=== PATIENT | female | born 1985 | race Caucasian/White ===

== ENCOUNTER 2017-11-17 06:57 | Inpatient (IN) | payer MEDICAID ==
[2015-08-23 16:01] VITALS: BMI 31.1
[2017-11-17] MEDS ORDERED: Penicillin G 5 Million Unit Vial IVPB ONE (07:05)
[2017-11-17] MEDS ORDERED: Lactated Ringer's 1,000 ML IV SCH (07:15)
[2017-11-17] MEDS ORDERED: Oxytocin 30 UNIT 30 UNITS/500 ML BAG IV SCH (08:00)
[2017-11-17 08:19] LABS: BASO % 0.1 % (0.0-2.0); EOS % 0.2 % (0.0-4.0); HEMOGLOBIN 12.6 g/dL (11.0-16.0); LYMPH # 2.6 K/uL (1.0-4.3); LYMPH % 24.2 % (20.0-40.0); MEAN CELL VOLUME 96.3 fL (81.0-99.0); MEAN CORPUSCULAR HEMOGLOBIN 33.7 pg (27.0-31.0); MEAN CORPUSCULAR HGB CONC 34.9 g/dL (33.0-37.0); MEAN PLATELET VOLUME 9.6 fL (7.2-11.7); MONO # 0.5 K/uL (0.0-0.8); MONO % 4.8 % (0.0-10.0); NEUT # 7.6 K/uL (1.8-7.0); NEUT % 70.7 % (50.0-75.0); NRBC % 0.1 % (0.0-2.0); RBC 3.75 Mil/uL (3.80-5.20); RED CELL DISTRIBUTION WIDTH 13.7 % (11.5-14.5); WHITE BLOOD COUNT 10.7 K/uL (4.8-10.8)
[2017-11-17 08:31] LABS: GFR AFRICAN-AMERICAN > 60; GFR NON-AFRICAN AMERICAN > 60
[2017-11-17 08:32] LABS: ALBUMIN 3.7 g/dL (3.5-5.0); ALT/SGPT 36 U/L (9-52); AST/SGOT 47 U/L (14-36); BLOOD UREA NITROGEN 8 mg/dL (7-17)
[2017-11-17 08:34] LABS: SQUAMOUS EPITHIAL 8 /hpf (0-5); URINE BACTERIA RARE (<OCC); URINE BILIRUBIN NEGATIVE (NEGATIVE); URINE BLOOD 1+ (NEGATIVE); URINE CLARITY Hazy (Clear); URINE COLOR Yellow (YELLOW); URINE GLUCOSE (UA) NORMAL (Normal); URINE LEUKOCYTE ESTERASE TRACE Leu/uL (Negative); URINE NITRATE NEGATIVE (NEGATIVE); URINE PROTEIN NEGATIVE (NEGATIVE); URINE UROBILINOGEN NORMAL mg/dL (0.2-1.0)
--- NOTE | 2017-11-17 09:05 | OBPN ---
Datetime: 11/17/2017 07:16 IP Progress Impression Other: SROM IP Progress Impression: Normal progression of labor IP Informed Consent Obtain: Vaginal Delivery IP Progress Plan: Continue present management Membranes, Provider: Intact Contraction Comments Provider: q8min IP Progress Note Comment: NORMAL PROGRESS OF LABOR, ANTICIPATE NORMAL VAGINAL DELIVERY. Vital Signs Provider: Reviewed; Within Normal Limits NICHD Accel Fetus A IP Provider: 15X15 Dilatation, Provider: 9 Effacement, Provider: 100 Station, Provider: 0 NICHD Decel Fetus A IP Provider: None
[2017-11-17] MEDS: Multiple Vitamins Tab PO SCH (10:05)
[2017-11-17] MEDS ORDERED: Benzocaine/Menthol 20%-0.5% Topical Spray (60 ml) TOP SCH (12:00)
[2017-11-18 07:32] LABS: BASO % 0.2 % (0.0-2.0); EOS # 0.1 K/uL (0.0-0.7); EOS % 0.6 % (0.0-4.0); HEMOGLOBIN 11.8 g/dL (11.0-16.0); LYMPH # 3.6 K/uL (1.0-4.3); LYMPH % 32.8 % (20.0-40.0); MEAN CELL VOLUME 96.9 fL (81.0-99.0); MEAN CORPUSCULAR HEMOGLOBIN 33.7 pg (27.0-31.0); MEAN CORPUSCULAR HGB CONC 34.8 g/dL (33.0-37.0); MEAN PLATELET VOLUME 9.7 fL (7.2-11.7); MONO # 0.7 K/uL (0.0-0.8); MONO % 6.1 % (0.0-10.0); NEUT # 6.7 K/uL (1.8-7.0); NEUT % 60.3 % (50.0-75.0); RBC 3.49 Mil/uL (3.80-5.20); RED CELL DISTRIBUTION WIDTH 13.3 % (11.5-14.5)
[2017-11-18 09:33] VITALS: RESP 18
--- NOTE | 2017-11-18 09:57 | OBADHP ---
Datetime: 11/17/2017 07:16 Admit Comment, IP Provider: Patient is a 32 year old at 40w4d with SELVIN 11/13/17 presents to L +D for contractions that started at 11:45pm last night. Pain is intermitted. Offers no other complain ts at this time. Endorses +FM, denies LOF, VB. Issues: GBS positive OB Hx: 1. 2012 at term, 8 lbs, female , no complications 2. 2014 at term, 7lbs, female infant, no complications 3. 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 Hx: LMP - 02/06/17 [facility] - 13 x monthly x 6-7 days Denies fibroids, ovarian cysts Allergies: NKDA Medical Hx: Denies Medications: PNV Surgical Hx: Denies Social Hx: Deneis alcohol, tobacco, drug use Family Hx: Denies PE: see above A/P: 32 year old at 40w4d presents in active labor -Stable, afebrile -CEFM and TOCO -Admission labs: CBC, CMP, TS, UA, RPR, HIV -GBS positive: Pen G -Diet: NPO -Anticipate vaginal delivery -Plan discussed with Dr Pedro Pablo Hoffman DO PGY-1 Pelvic Type - PN: Adequate Extremities - PN: Normal Abdomen - PN: Normal Back - PN: Normal Breast - PN: Normal Lungs - PN: Normal Heart - PN: Normal Thyroid - PN: Normal Neurologic - PN: Normal HEENT - PN: Normal General - PN: Normal Membranes, Provider: Intact Contraction Comments Provider: q8min Comments, ACOG Physical Exam: VSS Gen: AAOx3 Abd: Soft, gravid Ext: No clubbing, cyanosis, edema SVE: 100/0 IP Hx Assessment: The History has been Reviewed and is Current Vital Signs Provider: Reviewed; Within Normal Limits IP Chief Complaint: Uterine contractions NICHD Accel Fetus A IP Provider: 15X15 NICHD Decel Fetus A IP Provider: None Dilatation, Provider: 9 Effacement, Provider: 100 Station, Provider: 0 Genitourinary Exam: Normal DTRs - PN: Normal EGA AdmitDate IP: 40.4 IP Adm Impression: Term, intrauterine IP Admit Plan: Admit to unit
[2017-11-18] MEDS: Multiple Vitamins Tab PO SCH (10:15)
--- NOTE | 2017-11-18 20:34 | OBPPN ---
Datetime: 11/18/2017 20:20 PP Pain Prov: Within normal limits PP Nausea Prov: Denies PP Flatus Prov: Yes PP Breasts Prov: Normal PP Heart Prov: Normal PP Lungs Prov: Normal PP Abdomen/Uterus Prov: Normal PP Lochia Prov: Normal PP Vulva/Perineum Prov: Normal PP CVA Tenderness Prov: Normal PP Extremities Prov: Normal PP Plan Prov: Continue present management PP Progress Note Prov: 1st day: afebrile, ambulatory, breasts are soft lactating her baby, uterus firm and char d, lochia minimal, extremities, no edema, no tenderness. for discharged home in am.. continue prenata l vitamins. to the office for checkup in 4 weeks. IP PP Procedures: None Vital Signs Provider PP: Reviewed; Within Normal Limits
[2017-11-19] MEDS: Multiple Vitamins Tab PO SCH (09:51)
[2017-11-19] MEDS ORDERED: Influenza Vaccine 60 mcg/0.5 mL SYR (4YR UP) IM ONE (14:00)
--- NOTE | 2017-11-19 15:28 | OBDS ---
DELIVERY PERSONNEL Delivery Doctor: Stefano Morales MD Retail Customer Service Specialist: Madison Perez RN MATERNAL INFORMATION Delivery Anesthesia: None Estimated Blood Loss (ml): 150 Placenta Cultured: No Maternal Complications: None Provider Comments: normal spontaneous vaginal delivery to a live baby boy with score of 9/9 fr om a nehemiah position with intact perineum, PLACENTA EXPELLED SPONTANEOUSLY COMPLETE. UTERUS FIRM AND GARFIELD D. EBL 150 CC. LABOR SUMMARY EDC: 11/13/2017 00:00 No. Babies in Womb: 1 Attempted: No Labor Anesthesia: None LABOR INFORMATION Reason for Induction: Not Applicable Onset of Labor: 11/16/2017 23:45 Complete Dilatation: 11/17/2017 08:16 Oxytocin: Augmentation Group B Beta Strep: Positive Antibiotics # of Doses: 1 Antibiotics Time of Last Dose: 717 Steroids Given: None Reason Steroids Not Administered: Not Applicable MEMBRANES Membranes Rupture Method: Spontaneous Rupture of Membranes: 11/17/2017 08:16 Length of Rupture (hrs): 0.35 Amniotic Fluid Color: Clear Amniotic Fluid Amount: Small Amniotic Fluid Odor: Normal STAGES OF LABOR Stage 1 hrs: 8 Stage 1 min: 31 Stage 2 hrs: 0 Stage 2 min: 21 Stage 3 hrs: 0 Stage 3 min: 3 Total Time in Labor hrs: 8 Total Time in Labor min: 55 VAGINAL DELIVERY Episiotomy: None Laceration Extension: N/A Laceration Type: None Laceration Repair: Not Applicable Initial Vag Sponge Count: 10 Final Vag Sponge Count: 10 Initial Vag Sharps Count: 0 Final Vag Sharps Count: 0 Sponge Count Correct: Yes Sharps Count Correct: N/A BABY A INFORMATION Infant Delivery Date/Time: 11/17/2017 08:37 Method of Delivery: Vaginal Born in Route : No : N/A Forceps: N/A Vacuum Extraction: N/A Shoulder Dystocia : No SHOULDER DYSTOCIA BABY A Infant Delivery Date/Time: 11/17/2017 08:37 PRESENTATION/POSITION BABY A Presentation: Cephalic Cephalic Presentation: Vertex Vertex Position: Left Occipital Anterior Breech Presentation: N/A PLACENTA INFORMATION BABY A Placenta Delivery Time : 11/17/2017 08:40 SCORES BABY A Heart Rate 1 min: >100 bpm Resp Effort 1 min: Good Cry Reflex Irritability 1 min: Cough or Sneeze or Pulls Away Muscle Tone 1 min: Active Motion Color 1 min: Body [place], Extremities Blue Resuscitation Effort 1 min: Tactile Stimulation SCORE 1 MIN: 9 Heart Rate 5 min: >100 bpm Resp Effort 5 min: Good Cry Reflex Irritability 5 min: Cough or Sneeze or Pulls Away Muscle Tone 5 min: Active Motion Color 5 min: Body [place], Extremities Blue SCORE 5 MIN: 9 INFANT INFORMATION BABY A Gestational Age at Delivery: 40.4 Gestational Status: Post-term Infant Outcome : Liveborn Infant Condition : Stable Sex: Male IDENTIFICATION/MEDS BABY A ID Band Number: [id number] ID Band Location: Left Leg; Left Arm Sensor Applied: Yes Sensor Number: [id number] Sensor Location : Cord Clamp Vitamin K Given : Aquamephyton 1 mg IM Erythromycin Given: Given Both Eyes WEIGHT/LENGTH BABY A Infant Birthweight (gms): 3690 Infant Weight (lb): 8 Weight (oz): 2 Length Inches: 20.00 Infant Length cms: 50.8 CORD INFORMATION BABY A No. Cord Vessels: 3 Nuchal Cord : N/A Cord Blood Taken: Yes Infant Suction: Mouth; Nose RESUSCITATION BABY C Dr Signature: SACHIN HERNANDEZ MD
[2017-11-19 22:47] VITALS: BP 99/63; PULSE 63; TEMP 98.1; O2SAT 98
== END 2017-11-19 14:35 | disposition home or self-care (01) | DRG 373 ==
LOC: C.EROB 06:57 → C.4D 07:11 → C.4M 10:50
PROVIDERS: ADMIT Obstetrics & Gynecology; ATTEND Obstetrics & Gynecology
PROC: 10E0XZZ Delivery of Products of Conception, External Approach (ICD-10-PCS; principal; 2017-11-18)
DX: O48.0 Post-term pregnancy (principal); O99.824 Streptococcus B carrier state complicating childbirth; Z37.0 Single live birth; Z3A.40 40 weeks gestation of pregnancy